=== PATIENT | male | born 1990 | race Caucasian/White ===

== ENCOUNTER 2017-05-06 14:18 | Day surgery (SDC) | payer OTHER, MEDICAID ==
[~2017-05-06] VITALS: Ht 177.8 cm; Wt 76.4 kg
[~2017-05-06 14:18] MED LIST: LACO100T2 PO; LEVE250T4 PO; PERA6TAB PEG
[2017-05-06 15:03] VITALS: BP 96/63
[2017-05-06] MEDS ORDERED: diatrozoate meglu/diatrozoate sod (37% iodine) 120ML oral solution ONE (15:27)
[2017-05-06 15:45] VITALS: BP 89/66
== END 2017-05-06 16:10 | disposition home or self-care (01) ==
LOC: GI LAB 14:18
PROVIDERS: ATTEND Internal Medicine Gastroenterology
DX: Z43.1 Encounter for attention to gastrostomy (principal)
CPT/HCPCS: 43760; 74018; B4088; Q9963

== ENCOUNTER 2018-03-17 09:42 | Day surgery (SDC) | payer MEDICARE, OTHER, MEDICAID ==
[~2018-03-17] VITALS: Ht 177.8 cm; Wt 80.0 kg
[2018-03-17 09:55] VITALS: BP 100/38
[2018-03-17] MEDS ORDERED: diatr meglu/diatrizoate 30ml oral sol.-(3 dose) bottle ONE (10:30)
== END 2018-03-17 11:25 | disposition home or self-care (01) ==
LOC: GI LAB 09:42
PROVIDERS: ATTEND Internal Medicine Gastroenterology
DX: Z46.59 Encounter for fitting and adjustment of other gastrointestinal appliance and device (principal); I38 Endocarditis, valve unspecified; Z86.79 Personal history of other diseases of the circulatory system; Z95.1 Presence of aortocoronary bypass graft; Z95.2 Presence of prosthetic heart valve; Z87.891 Personal history of nicotine dependence; Z87.2 Personal history of diseases of the skin and subcutaneous tissue; Z87.39 Personal history of other diseases of the musculoskeletal system and connective tissue; Z86.14 Personal history of Methicillin resistant Staphylococcus aureus infection; Z86.69 Personal history of other diseases of the nervous system and sense organs; Z88.8 Allergy status to other drugs, medicaments and biological substances; Z79.899 Other long term (current) drug therapy; Z98.890 Other specified postprocedural states
CPT/HCPCS: 43760; 74018; 99201; Q9963; B4088; G0500

== ENCOUNTER 2018-09-22 13:22 | Day surgery (SDC) | payer MEDICARE, OTHER, MEDICAID ==
[~2018-09-22] VITALS: Ht 177.8 cm; Wt 77.3 kg
[~2018-09-22 13:22] MED LIST changes: +diatrozoate meglu/diatrozoate sod (37% iodine) 120ML oral solution ONE
[2018-09-22 13:39] VITALS: BP 95/67
[2018-09-22] MEDS ORDERED: LACO200T2 PEG (13:55)
[2018-09-22] MEDS ORDERED: LEVE100S21 PEG (13:58)
== END 2018-09-22 15:08 | disposition home or self-care (01) ==
LOC: GI LAB 13:22
PROVIDERS: ATTEND Internal Medicine Gastroenterology
DX: Z43.1 Encounter for attention to gastrostomy (principal)
CPT/HCPCS: 43762; 74018; G0463; Q9963; B4088

== ENCOUNTER 2019-02-13 10:17 | Day surgery (SDC) | payer OTHER, MEDICARE, MEDICAID ==
[~2019-02-13] VITALS: Ht 177.8 cm; Wt 79.5 kg
[~2019-02-13 10:17] MED LIST changes: -LACO100T2 PO; +LACO200T2 PEG; +LEVE100S21 PEG; -LEVE250T4 PO; -PERA6TAB PEG; -diatrozoate meglu/diatrozoate sod (37% iodine) 120ML oral solution ONE
[2019-02-13 10:35] VITALS: BP 93/68
[2019-02-13] MEDS ORDERED: diatr meglu/diatrizoate 30ml oral sol.-(3 dose) bottle PO ONE (11:55)
[2019-02-13] MEDS ORDERED: diatr meglu/diatrizoate 30ml oral sol.-(3 dose) bottle PO SCH (11:55)
[2019-02-13] MEDS ORDERED: simethicone 40mg/0.6ml oral drops 30ml PO ONE (12:00)
[2019-02-13] MEDS ORDERED: LIDOcaine Viscous 15ml cup MM ONE (12:00)
[2019-02-13] MEDS ORDERED: normal saline 1000ml 1,000 ML IV SCH (12:05)
== END 2019-02-13 12:44 | disposition home or self-care (01) ==
LOC: GI LAB 10:17
PROVIDERS: ATTEND Internal Medicine Gastroenterology
DX: K94.20 Gastrostomy complication, unspecified (principal)
CPT/HCPCS: 43762; 74018; J7030; Q9963; B4087

== ENCOUNTER 2019-10-21 08:38 | Day surgery (SDC) | payer OTHER, MEDICARE, MEDICAID ==
[~2019-10-21] VITALS: Ht 177.8 cm; Wt 79.5 kg
[2019-10-21 08:47] VITALS: BP 90/61
[2019-10-21] MEDS ORDERED: diatrozoate meglu/diatrozoate sod (37% iodine) 120ML oral solution ONE (09:00)
[2019-10-21] MEDS ORDERED: LAMO250T2 PO (09:03)
[2019-10-21] MEDS ORDERED: LAMO150T6 PO (09:04)
[2019-10-21 09:48] VITALS: BP 89/55
== END 2019-10-21 10:38 | disposition home or self-care (01) ==
LOC: GI LAB 08:38
PROVIDERS: ATTEND Internal Medicine Gastroenterology
DX: Z43.1 Encounter for attention to gastrostomy (principal)
CPT/HCPCS: 43762; 74018; Q9963; 43763; A5120; B4087

== ENCOUNTER 2021-09-30 19:18 | Emergency (ER) | payer OTHER, MEDICARE, MEDICAID ==
[~2021-09-30] VITALS: Ht 177.8 cm; Wt 75.0 kg
[~2021-09-30 19:18] MED LIST changes: +LAMO150T6 PO; +LAMO250T2 PO
[2021-09-30 19:26] VITALS: BP 95/68
[2021-09-30 20:51] LABS: BASOPHILS # (AUTO) 0.1 X10'3 (0-0.2); BASOPHILS % (AUTO) 0.5 % (0-1); EOSINOPHILS # (AUTO) 0.2 X10'3 (0-0.9); EOSINOPHILS % (AUTO) 1.7 % (0-6); HEMATOCRIT 41.1 % (42.0-52.0); HEMOGLOBIN 13.8 g/dl (14.0-17.9); LYMPHOCYTES # (AUTO) 1.9 X10'3 (1.1-4.8); LYMPHOCYTES % (AUTO) 17.3 % (21-51); MEAN CORPUSCULAR HEMOGLOBIN 28.5 PG (27.0-31.0); MEAN CORPUSCULAR HGB CONC 33.6 g/dL (33.0-36.5); MEAN CORPUSCULAR VOLUME 84.7 FL (78-98); MEAN PLATELET VOLUME 9.8 FL (7.4-10.4); MONOCYTES % (AUTO) 9.3 % (2-12); NEUTROPHILS # (AUTO) 7.7 X10'3 (1.8-7.7); NEUTROPHILS % (AUTO) 71.2 % (42-75); PLATELET COUNT 117 X10'3 (140-440); RED BLOOD COUNT 4.86 X10'6 (4.70-6.10); RED CELL DISTRIBUTION WIDTH 13.7 % (11.5-14.5); WHITE BLOOD COUNT 10.8 X10'3 (4.5-11.0)
[2021-09-30 21:17] LABS: ALANINE AMINOTRANSFERASE 21 U/L (12-78); ALBUMIN 3.6 G/DL (3.4-5.0); ALBUMIN/GLOBULIN RATIO 0.9 (1.1-1.5); ALKALINE PHOSPHATASE 99 IU/L (46-116); ANION GAP 10 (8-16); ASPARTATE AMINO TRANSFERASE 23 U/L (10-37); BILIRUBIN,TOTAL 0.4 MG/DL (0.1-1.0); BLOOD UREA NITROGEN 8 MG/DL (7-18); BUN/CREATININE RATIO 11.9 (5.4-32.0); CALCIUM 8.9 MG/DL (8.5-10.1); CHLORIDE 102 MMOL/L (99-107); CREATININE 0.67 MG/DL (0.60-1.10); GLUCOSE 111 MG/DL (70-104); SODIUM 138 MMOL/L (135-145); TOTAL CARBON DIOXIDE 26.5 MMOL/L (24-32); TOTAL PROTEIN 7.7 G/DL (6.4-8.2); eGFR > 90 ML/MIN
[2021-09-30 21:23] LABS: POTASSIUM 3.8 MMOL/L (3.5-5.1)
[2021-09-30] MEDS ORDERED: HYDROcodone/acetaminophen 10/325mg tab PO ONE (22:05)
[2021-09-30] MEDS ORDERED: ondansetron 4mg rapidly disintigrating tab PO ONE (22:05)
== END 2021-10-01 00:17 | disposition home or self-care (01) ==
LOC: ER 19:19
DX: S62.640A Nondisplaced fracture of proximal phalanx of right index finger, initial encounter for closed fracture (principal); L03.011 Cellulitis of right finger; Z99.3 Dependence on wheelchair; Z88.8 Allergy status to other drugs, medicaments and biological substances; Z79.899 Other long term (current) drug therapy; W50.3XXA Accidental bite by another person, initial encounter; Y93.89 Activity, other specified; Y92.89 Other specified places as the place of occurrence of the external cause; Y99.8 Other external cause status
CPT/HCPCS: 26725; 36415; 73140; 80053; 83605; 84145; 85025; 87040; 99284; J7030; A6446; A6449

== ENCOUNTER 2021-10-18 05:47 | Day surgery (SDC) | payer OTHER, MEDICARE, MEDICAID ==
[2021-10-17 12:03] LABS: BASOPHILS # (AUTO) 0.1 X10'3 (0-0.2); EOSINOPHILS # (AUTO) 0.1 X10'3 (0-0.9); EOSINOPHILS % (AUTO) 1.7 % (0-6); LYMPHOCYTES # (AUTO) 1.9 X10'3 (1.1-4.8); LYMPHOCYTES % (AUTO) 27.5 % (21-51); MEAN CORPUSCULAR HEMOGLOBIN 27.9 PG (27.0-31.0); MEAN CORPUSCULAR HGB CONC 33.5 g/dL (33.0-36.5); MEAN CORPUSCULAR VOLUME 83.1 FL (78-98); MEAN PLATELET VOLUME 9.8 FL (7.4-10.4); MONOCYTES # (AUTO) 0.6 X10'3 (0-0.9); NEUTROPHILS # (AUTO) 4.1 X10'3 (1.8-7.7); NEUTROPHILS % (AUTO) 60.8 % (42-75); PRE OP HEMATOCRIT 42.9 % (42.0-52.0); PRE OP HEMOGLOBIN 14.4 g/dL (14.0-17.9); PRE OP PLATELET COUNT 164 X10'3 (140-440); RED BLOOD COUNT 5.15 X10'6 (4.70-6.10); RED CELL DISTRIBUTION WIDTH 13.8 % (11.5-14.5)
[2021-10-17 12:16] LABS: ALBUMIN 3.8 G/DL (3.4-5.0); ALBUMIN/GLOBULIN RATIO 0.9 (1.1-1.5); ALKALINE PHOSPHATASE 84 IU/L (46-116); BLOOD UREA NITROGEN 8 MG/DL (7-18); BUN/CREATININE RATIO 9.3 (5.4-32.0); CALCIUM 8.9 MG/DL (8.5-10.1); CHLORIDE 103 MMOL/L (99-107); CREATININE 0.86 MG/DL (0.60-1.10); PRE OP ALT 42 U/L (30-65); PRE OP ANION GAP 8 (8-16); PRE OP AST 26 U/L (10-37); PRE OP BILIRUB, TOTAL 0.4 MG/DL (0.0-1.0); PRE OP GLUCOSE 89 MG/DL (70-104); PRE OP SODIUM 137 MMOL/L (135-145); TOTAL CARBON DIOXIDE 25.7 MMOL/L (24-32); TOTAL PROTEIN 7.9 G/DL (6.4-8.2); eGFR > 90 ML/MIN
[~2021-10-18] VITALS: Ht 177.8 cm; Wt 74.0 kg
[2021-10-18] VITALS (8 sets, daily range): BP systolic 88–98; BP diastolic 59–80
[~2021-10-18 05:47] MED LIST changes: +CANN100S PEG; -LAMO150T6 PO; -LAMO250T2 PO; +clindamycin-Cleocin 900mg/D5W 50 ML IV ONE; +famotidine 20mg tablet PO ONE; +ringers solution, lacted 1,000 ML IV SCH
[2021-10-18] MEDS ORDERED: BUPIVAcaine/PF 2.5mg/ml (0.25%) 10ml vial ONE (06:43)
[2021-10-18] MEDS ORDERED: ondansetron/PF 4mg/2ml inj IV PRN (07:35)
[2021-10-18] MEDS ORDERED: ringers solution, lacted 1,000 ML IV SCH (07:35)
[2021-10-18] MEDS ORDERED: morphine 4 MG/ML inj SYRINge IV PRN (07:35)
[2021-10-18] MEDS ORDERED: acetaminophen 1,000mg/100ml IV 100 ML IV PRN (07:35)
[2021-10-18] MEDS ORDERED: fentaNYL/PF 50MCG/1 ML 2ML syringe IV PRN ×2 (07:35)
[2021-10-18] MEDS ORDERED: morphine 2 MG/ML inj. syringe IV PRN (07:35)
[2021-10-18] MEDS ORDERED: midazolam 1 mg/ML 2ml injection ONE (07:42)
[2021-10-18] MEDS ORDERED: LIDOcaine 0.5% (5mg/ml) 50ml vial ONE (08:15)
[2021-10-18] MEDS ORDERED: propofol inj 20 ML IV ONE (08:15)
--- NOTE | 2021-10-18 08:46 | NUR ---
Received from OR via [facility], accompanied by Anesthesiologist and report given by DR. CORCORAN Anesthesiologist. PATIENT WAKING UP, NO S/S OF PAIN, V/S WNL, SCD ON, 22G TO marivel ZENG to RIGHT HAND-CDI. LAWSON CATH DRAIN VIA GRAVITY WITH YELLOW CLEAR URINE. Addendum: 10/18/21 at 0855 by Reagan Leslie RN Amended: Links added.
--- NOTE | 2021-10-18 09:46 | NUR ---
ALL DISCHARGE CRITERIA HAS BEEN MET. VSS, NO S/S OF PAIN, TRANSFER PATIENT SAFELY VIA LIFT DEVICE. IV TAKEN OUT WITHOUT ANY COMPLICATIONS. ALL DISCHARGE INSTRUCTIONS COVERED WITH PATIENT'A PARENTS AND ALL QUESTIONS ANSWERED. PATIENT TAKEN OUT VIA PERSONAL WHEELCHAIR TO PERSONAL VEHICLE WHERE FAMILY DROVE PATIENT HOME. Addendum: 10/18/21 at 1009 by Reagan Leslie RN Amended: Links added.
== END 2021-10-18 09:50 | disposition home or self-care (01) ==
LOC: PAS 05:47
PROVIDERS: ATTEND Orthopaedic Surgery Hand Surgery
DX: S62.610A Displaced fracture of proximal phalanx of right index finger, initial encounter for closed fracture (principal); Z79.899 Other long term (current) drug therapy; X58.XXXA Exposure to other specified factors, initial encounter; Y93.89 Activity, other specified; Y92.89 Other specified places as the place of occurrence of the external cause; Y99.8 Other external cause status; Z98.890 Other specified postprocedural states; Z88.8 Allergy status to other drugs, medicaments and biological substances
CPT/HCPCS: 26746; 36415; 80053; 82948; 85025; A6222; C1713; J2250; J2704; J3490; J7030; J7120; Z7506; Z7508; Z7512; A4215; A4618; A6449; A7000

== ENCOUNTER 2021-12-11 09:40 | Day surgery (SDC) | payer OTHER, MEDICARE, MEDICAID ==
[2021-12-08 14:59] LABS: BASOPHILS # (AUTO) 0.1 X10'3 (0-0.2); BASOPHILS % (AUTO) 0.9 % (0-1); EOSINOPHILS # (AUTO) 0.2 X10'3 (0-0.9); EOSINOPHILS % (AUTO) 2.8 % (0-6); LYMPHOCYTES % (AUTO) 29.7 % (21-51); MEAN CORPUSCULAR HEMOGLOBIN 28.5 PG (27.0-31.0); MEAN CORPUSCULAR HGB CONC 33.8 g/dL (33.0-36.5); MEAN CORPUSCULAR VOLUME 84.3 FL (78-98); MEAN PLATELET VOLUME 10.3 FL (7.4-10.4); MONOCYTES # (AUTO) 0.6 X10'3 (0-0.9); NEUTROPHILS # (AUTO) 3.9 X10'3 (1.8-7.7); NEUTROPHILS % (AUTO) 57.6 % (42-75); PRE OP HEMATOCRIT 40.5 % (42.0-52.0); PRE OP HEMOGLOBIN 13.7 g/dL (14.0-17.9); PRE OP PLATELET COUNT 124 X10'3 (140-440); RED CELL DISTRIBUTION WIDTH 13.9 % (11.5-14.5)
[2021-12-08 15:17] LABS: ALBUMIN 3.5 G/DL (3.4-5.0); ALBUMIN/GLOBULIN RATIO 0.8 (1.1-1.5); ALKALINE PHOSPHATASE 103 IU/L (46-116); BLOOD UREA NITROGEN 10 MG/DL (7-18); BUN/CREATININE RATIO 14.3 (5.4-32.0); CHLORIDE 102 MMOL/L (99-107); PRE OP ALT 24 U/L (30-65); PRE OP ANION GAP 7 (8-16); PRE OP AST 15 U/L (10-37); PRE OP BILIRUB, TOTAL 0.3 MG/DL (0.0-1.0); PRE OP GLUCOSE 104 MG/DL (70-104); PRE OP POTASSIUM 3.7 MMOL/L (3.4-5.1); PRE OP SODIUM 137 MMOL/L (135-145); TOTAL CARBON DIOXIDE 27.6 MMOL/L (24-32); eGFR > 90 ML/MIN
[~2021-12-11] VITALS: Ht 177.8 cm; Wt 73.6 kg
[2021-12-11] VITALS (10 sets, daily range): BP systolic 92–126; BP diastolic 55–71
[~2021-12-11 09:40] MED LIST changes: -clindamycin-Cleocin 900mg/D5W 50 ML IV ONE; +dexamethasone sod phosphate 4mg/ml inj. ONE; -famotidine 20mg tablet PO ONE; +fentaNYL/PF 50MCG/1 ML 2ML syringe ONE; +hydrALAZINE 20mg/ml inj. IV ONE; +midazolam 1 mg/ML 2ml injection ONE; +ondansetron/PF 4mg/2ml inj ONE; +propofol inj 20 ML IV ONE; -ringers solution, lacted 1,000 ML IV SCH
[2021-12-11] MEDS ORDERED: proCHLORperazine 10 MG/2 ml inj IV PRN (09:50)
[2021-12-11] MEDS ORDERED: morphine 2 MG/ML inj. syringe IV PRN (09:50)
[2021-12-11] MEDS ORDERED: meperidine/PF 25mg/ml syringe IV PRN ×3 (09:50)
[2021-12-11] MEDS ORDERED: ondansetron/PF 4mg/2ml inj IV PRN (09:50)
[2021-12-11] MEDS ORDERED: morphine 4 MG/ML inj SYRINge IV PRN (09:50)
[2021-12-11] MEDS ORDERED: ringers solution, lacted 1,000 ML IV SCH (09:50)
[2021-12-11] MEDS ORDERED: clindamycin-Cleocin 900mg/D5W 50 ML IV ONE (11:50)
[2021-12-11] MEDS ORDERED: BUPIVAcaine/PF 2.5 mg/ml (0.25%) 30ml vial ONE (13:31)
[2021-12-11] MEDS ORDERED: fentaNYL/PF 50MCG/1 ML 2ML syringe ONE (14:12)
[2021-12-11] MEDS ORDERED: MIDAZolam 1 MG/ML 5ML VIAL ONE (14:12)
[2021-12-11] MEDS ORDERED: ketorolac trometh. 30mg/ml inj. ONE (14:13)
[2021-12-11] MEDS ORDERED: 0.9 % SODIUM CHLORIDE 10 ML VIAL ONE (14:14)
[2021-12-11] MEDS ORDERED: BUPIVAcaine/PF 2.5 mg/ml (0.25%) 30ml vial IJ ONE (14:45)
--- NOTE | 2021-12-11 15:10 | NUR ---
PT ARRIVED TO VIA [facility]-[facility] SLEEPY, RIGHT HAND WRAPPED-CDI, FINGERS-PINK/WARM, VSS, SCDS ON, DENIES PAIN, MOM BROUGHT BACK TO SIT WITH PT.
--- NOTE | 2021-12-11 16:50 | NUR ---
PT WAS ABLE TO GET UP VIA THE JACK LIFT WITH ASSISTANCE FROM AIDE AND MOM, VSS, NO APPEARANCE OF PAIN, DRESG-0CDI. CSM +, PIV D/CD CANULA INTACT, D/C INSTRUCTIONS GIVEN TO MOM-ALL QUESTIONS ANSWERED. TAKEN WITH ALL BELONGINGS VIA OWN W/C TO VEHICLE FOR TRANSPORT HOME.
== END 2021-12-11 16:50 | disposition home or self-care (01) ==
LOC: PAS 09:40
PROVIDERS: ATTEND Orthopaedic Surgery
DX: M86.641 Other chronic osteomyelitis, right hand (principal); Z79.899 Other long term (current) drug therapy; Z98.890 Other specified postprocedural states; M86.141 Other acute osteomyelitis, right hand; Z87.891 Personal history of nicotine dependence; Z88.8 Allergy status to other drugs, medicaments and biological substances; Z88.1 Allergy status to other antibiotic agents; Z88.2 Allergy status to sulfonamides
CPT/HCPCS: 26951; 36415; 80053; 82948; 85025; 87811; A6222; J1885; J2250; J3010; J3490; J7030; J7120; Z7506; Z7512; A4618; A6449; A7000; J0360; J1100; J2405; J2704

== ENCOUNTER 2023-03-06 14:54 | Outpatient (CLI) | payer BC, MEDICARE, MEDICAID ==
[~2023-03-06 14:54] MED LIST changes: -dexamethasone sod phosphate 4mg/ml inj. ONE; -fentaNYL/PF 50MCG/1 ML 2ML syringe ONE; -hydrALAZINE 20mg/ml inj. IV ONE; -midazolam 1 mg/ML 2ml injection ONE; -ondansetron/PF 4mg/2ml inj ONE; -propofol inj 20 ML IV ONE
== END 2023-03-06 23:59 | disposition home or self-care (01) ==
LOC: LAB 14:54
PROVIDERS: ATTEND Student in an Organized Health Care Education/Training Program
DX: I38 Endocarditis, valve unspecified (principal)
CPT/HCPCS: 36415; 87040

== ENCOUNTER 2023-08-23 08:03 | Outpatient (CLI) | payer BC, MEDICARE, MEDICAID ==
[2023-08-23] MEDS ORDERED: iohexol 300mg/ml 100ml inj. ONE (08:31)
== END 2023-08-23 23:59 | disposition home or self-care (01) ==
LOC: RAD 08:03
PROVIDERS: ATTEND Thoracic Surgery (Cardiothoracic Vascular Surgery)
DX: J98.11 Atelectasis (principal); I51.7 Cardiomegaly; I35.1 Nonrheumatic aortic (valve) insufficiency; I35.0 Nonrheumatic aortic (valve) stenosis; I77.819 Aortic ectasia, unspecified site; I70.0 Atherosclerosis of aorta; Z95.828 Presence of other vascular implants and grafts
CPT/HCPCS: 36415; 71260; 85651; 86140; J3490; Q9967

== ENCOUNTER 2023-12-10 09:33 | Day surgery (SDC) | payer BC, MEDICARE, MEDICAID ==
[2023-12-09 15:52] LABS: PRE OP INR 0.9 INR; PRE OP PROTIME 10.1 SECONDS (9.0-12.0)
[~2023-12-10] VITALS: Ht 175.3 cm; Wt 74.8 kg
[2023-12-10] VITALS (14 sets, daily range): BP systolic 82–99; BP diastolic 42–69; PULSE 59–71; RESP 9–16; TEMP 97.7; O2SAT 96–100
[2023-12-10] MEDS: famotidine 20mg tablet PO ONE (05:30)
[2023-12-10] MEDS: ringers solution, lacted 1,000 ML IV SCH (10:48)
[2023-12-10 11:27] LABS: BASOPHILS # (AUTO) 0.1 X10'3 (0-0.2); BASOPHILS % (AUTO) 0.6 % (0-1); EOSINOPHILS # (AUTO) 0.2 X10'3 (0-0.9); EOSINOPHILS % (AUTO) 1.9 % (0-6); LYMPHOCYTES # (AUTO) 1.9 X10'3 (1.1-4.8); LYMPHOCYTES % (AUTO) 20.3 % (21-51); MEAN CORPUSCULAR HEMOGLOBIN 28.7 PG (27.0-31.0); MEAN CORPUSCULAR HGB CONC 33.7 g/dL (33.0-36.5); MEAN CORPUSCULAR VOLUME 85.2 FL (78-98); MONOCYTES # (AUTO) 0.6 X10'3 (0-0.9); MONOCYTES % (AUTO) 6.8 % (2-12); NEUTROPHILS # (AUTO) 6.5 X10'3 (1.8-7.7); NEUTROPHILS % (AUTO) 70.4 % (42-75); PRE OP HEMATOCRIT 42.9 % (42.0-52.0); PRE OP HEMOGLOBIN 14.4 g/dL (14.0-17.9); PRE OP PLATELET COUNT 149 X10'3 (140-440); PRE OP WHITE BLOOD COUNT 9.3 10'3 (4.8-10.8); RED BLOOD COUNT 5.03 X10'6 (4.70-6.10)
[2023-12-10] MEDS ORDERED: iohexol 350 MG/ML 50ML vial IV ONE (11:30)
[2023-12-10] MEDS ORDERED: LIDOcaine 1% 30ml preserv. free vial ONE (11:30)
[2023-12-10] MEDS ORDERED: iohexol 350MG/ML 100ml bottle IV ONE (11:31)
[2023-12-10 11:38] LABS: ALBUMIN 3.9 G/DL (3.4-5.0); ALKALINE PHOSPHATASE 118 IU/L (46-116); BLOOD UREA NITROGEN 9 MG/DL (7-18); BUN/CREATININE RATIO 12.7 (10.0-20.0); CALCIUM 9.1 MG/DL (8.5-10.1); CHLORIDE 102 MMOL/L (99-107); CREATININE 0.71 MG/DL (0.60-1.10); PRE OP ALT 22 U/L (30-65); PRE OP ANION GAP 8 (8-16); PRE OP AST 12 U/L (10-37); PRE OP BILIRUB, TOTAL 0.9 MG/DL (0.0-1.0); PRE OP GLUCOSE 87 MG/DL (70-104); PRE OP POTASSIUM 3.9 MMOL/L (3.4-5.1); PRE OP SODIUM 141 MMOL/L (135-145); TOTAL CARBON DIOXIDE 30.7 MMOL/L (24-32); TOTAL PROTEIN 7.8 G/DL (6.4-8.2); eCRCL 148 ML/MIN; eGFR > 90 ML/MIN
[2023-12-10] MEDS ORDERED: verapamil 2.5 mg/ml inj IV ONE (11:51)
[2023-12-10] MEDS ORDERED: heparin 1,000unit/ml 10ml vial 10 ML ONE (11:51)
[2023-12-10] MEDS ORDERED: nitroGLYCERIN 500mcg/5mL D5W 5 ML IV ONE (11:52)
[2023-12-10] MEDS ORDERED: propofol inj 20 ML IV ONE (12:23)
[2023-12-10] MEDS ORDERED: rocuronium 10mg/ml inj IV ONE (12:23)
[2023-12-10] MEDS ORDERED: sevoflurane 250ml liquid IH ONE (12:24)
[2023-12-10] MEDS ORDERED: fentaNYL/PF 50MCG/1 ML 2ML syringe ONE (12:31)
[2023-12-10] MEDS ORDERED: sugammadex 200mg/2ml injection IV ONE (13:06)
[2023-12-10] MEDS ORDERED: ePHEDrine 50MG/ML INJ. ONE (13:06)
== END 2023-12-10 15:42 | disposition home or self-care (01) ==
LOC: SSTAY O 09:33 → PAS 15:42
PROVIDERS: ATTEND Student in an Organized Health Care Education/Training Program
DX: I08.0 Rheumatic disorders of both mitral and aortic valves (principal); E03.9 Hypothyroidism, unspecified; Z87.891 Personal history of nicotine dependence; Z86.73 Personal history of transient ischemic attack (TIA), and cerebral infarction without residual deficits; Z79.899 Other long term (current) drug therapy; Z98.890 Other specified postprocedural states; Z88.1 Allergy status to other antibiotic agents; Z88.8 Allergy status to other drugs, medicaments and biological substances
CPT/HCPCS: 36415; 80053; 85025; 85610; 85730; 93312; 93325; 93454; A6258; J1644; J2704; J3010; J3490; J7120; Q9967; Z7512; 99152; A4615; A4618; A6449; C1760; C1894

== ENCOUNTER 2023-12-26 10:00 | Outpatient (CLI) | payer BC, MEDICARE, MEDICAID ==
[~2023-12-26 10:00] MED LIST changes: +IODIXANOL 320 MG/ML INFUS..BTL 100ML IV ONE
[2023-12-26 10:29] LABS: BASOPHILS % (AUTO) 0.6 % (0-1); EOSINOPHILS # (AUTO) 0.1 X10'3 (0-0.9); EOSINOPHILS % (AUTO) 1.9 % (0-6); HEMATOCRIT 42.9 % (42.0-52.0); HEMOGLOBIN 14.3 g/dl (14.0-17.9); LYMPHOCYTES # (AUTO) 1.8 X10'3 (1.1-4.8); LYMPHOCYTES % (AUTO) 24.4 % (21-51); MEAN CORPUSCULAR HEMOGLOBIN 28.7 PG (27.0-31.0); MEAN CORPUSCULAR HGB CONC 33.4 g/dL (33.0-36.5); MEAN CORPUSCULAR VOLUME 85.9 FL (78-98); MEAN PLATELET VOLUME 9.1 FL (7.4-10.4); MONOCYTES # (AUTO) 0.5 X10'3 (0-0.9); MONOCYTES % (AUTO) 7.3 % (2-12); NEUTROPHILS # (AUTO) 4.9 X10'3 (1.8-7.7); NEUTROPHILS % (AUTO) 65.8 % (42-75); PLATELET COUNT 146 X10'3 (140-440); RED BLOOD COUNT 4.99 X10'6 (4.70-6.10); RED CELL DISTRIBUTION WIDTH 14.6 % (11.5-14.5); WHITE BLOOD COUNT 7.5 X10'3 (4.5-11.0)
[2023-12-26 10:41] LABS: APTT 28 SECONDS (22-32)
[2023-12-26 10:42] LABS: ALANINE AMINOTRANSFERASE 22 U/L (12-78); ALBUMIN 3.6 G/DL (3.4-5.0); ALBUMIN/GLOBULIN RATIO 0.9 (1.1-1.5); ALKALINE PHOSPHATASE 99 IU/L (46-116); ANION GAP 4 (8-16); ASPARTATE AMINO TRANSFERASE 13 U/L (10-37); BILIRUBIN,TOTAL 0.6 MG/DL (0.1-1.0); BLOOD UREA NITROGEN 8 MG/DL (7-18); BUN/CREATININE RATIO 11.8 (10.0-20.0); CALCIUM 8.6 MG/DL (8.5-10.1); CHLORIDE 103 MMOL/L (99-107); CREATININE 0.68 MG/DL (0.60-1.10); GLUCOSE 80 MG/DL (70-104); POTASSIUM 3.6 MMOL/L (3.5-5.1); SODIUM 137 MMOL/L (135-145); TOTAL CARBON DIOXIDE 29.9 MMOL/L (24-32); TOTAL PROTEIN 7.5 G/DL (6.4-8.2); eGFR > 90 ML/MIN
[2023-12-26 10:49] LABS: PRO BRAIN NATRIURETIC PEPTIDE 85 PG/ML (0-125)
== END 2023-12-26 23:59 | disposition home or self-care (01) ==
LOC: RAD 10:00
PROVIDERS: ATTEND Internal Medicine Cardiovascular Disease
DX: I35.0 Nonrheumatic aortic (valve) stenosis (principal); K80.20 Calculus of gallbladder without cholecystitis without obstruction; I51.7 Cardiomegaly; R06.02 Shortness of breath; I65.29 Occlusion and stenosis of unspecified carotid artery
CPT/HCPCS: 36415; 71046; 71275; 74174; 75572; 80053; 83880; 85025; 85610; 85730; 93005; Q9967

== ENCOUNTER 2024-06-15 08:06 | Day surgery (SDC) | payer MEDICARE, MEDICAID ==
[2024-06-15] VITALS (11 sets, daily range): BP systolic 83–101; BP diastolic 56–72; PULSE 51–72; RESP 9–14; O2SAT 98–100
[~2024-06-15] VITALS: Ht 175.3 cm; Wt 75.0 kg
[~2024-06-15 08:06] MED LIST changes: -IODIXANOL 320 MG/ML INFUS..BTL 100ML IV ONE; +LACO10SO3 PEG; -LACO200T2 PEG; +LANSOPRAZOLE PEG; +[UNRECOGNIZED DRUG - OTHER] PEG
[2024-06-15] MEDS ORDERED: PREG20SO GT (08:44)
[2024-06-15] MEDS ORDERED: ASPI81TA30 PO (08:44)
[2024-06-15] MEDS ORDERED: fentaNYL/PF 50MCG/1 ML 2ML syringe ONE (10:21)
[2024-06-15] MEDS ORDERED: MIDAZolam 1 MG/ML 5ML VIAL ONE (10:21)
[2024-06-15] MEDS ORDERED: simethicone 40mg/0.6ml oral drops 30ml ONE (10:25)
== END 2024-06-15 11:25 | disposition home or self-care (01) ==
LOC: GI LAB 08:06
PROVIDERS: ATTEND Internal Medicine Gastroenterology
DX: K94.23 Gastrostomy malfunction (principal); K44.9 Diaphragmatic hernia without obstruction or gangrene
CPT/HCPCS: 43246; A4620; B4087; C1726; G0463; G0500; J2250; J3010; J7030; Z7512; 99152; 99202